=== PATIENT | male | born 1985 | race African-American/Black ===

== ENCOUNTER 2018-12-25 15:00 | Outpatient (CLI) | payer OTHER ==
--- NOTE | 2018-12-25 15:42 | RAD ---
LUMBAR SPINE SERIES TWO VIEWS: 12/25/18 HISTORY: Right sided back pain. Vertebral bodies are normal in height. Tiny osteophytes are present without significant disc narrowin g. Pedicles are intact. No spondylolisthesis. IMPRESSION: Minimal arthritic changes of the spine. POS: [facility]
== END 2018-12-25 15:01 | disposition home or self-care (01) ==
LOC: SCSRAD 15:00
PROVIDERS: ATTEND Psychiatry & Neurology Neurology
DX: M54.5 Low back pain (principal); M47.816 Spondylosis without myelopathy or radiculopathy, lumbar region
CPT/HCPCS: 72100

== ENCOUNTER 2023-01-05 08:50 | Outpatient (CLI) | payer OTHER | END 2023-01-05 08:51 | disposition home or self-care (01) | LOC: BICMAMMO 08:50 | PROVIDERS: ATTEND Family Medicine | DX: N63.15 Unspecified lump in the right breast, overlapping quadrants (principal); N62 Hypertrophy of breast | CPT/HCPCS: 77066; G0279 ==